=== PATIENT | female | born 1990 | race Caucasian/White ===

== ENCOUNTER 2016-08-11 08:54 | Emergency (ER) | payer OTHER ==
[~2016-08-11] VITALS: Ht 167.6 cm; Wt 56.7 kg
--- NOTE | 2016-08-11 09:47 | NUR ---
Patient discharged to home in stable conditon. Written and verbal after care instructions given. Patient verbalizes understanding of instructions.
== END 2016-08-11 09:48 | disposition home or self-care (01) ==
LOC: ER 08:54
DX: K04.7 Periapical abscess without sinus (principal); J45.909 Unspecified asthma, uncomplicated; F32.9 Major depressive disorder, single episode, unspecified; F41.9 Anxiety disorder, unspecified; F17.210 Nicotine dependence, cigarettes, uncomplicated; Z88.6 Allergy status to analgesic agent; Z88.0 Allergy status to penicillin
CPT/HCPCS: A4663

== ENCOUNTER 2016-08-14 11:04 | Emergency (ER) | payer OTHER ==
[~2016-08-14] VITALS: Ht 165.1 cm; Wt 46.7 kg
[2016-08-14] MEDS ORDERED: CLINDAMYCIN PHOSPHATE IV 900 MG in IV DEXTROSE 5% 100 ML IV ONE (11:30)
[2016-08-14] MEDS ORDERED: CLINDAMYCIN PHOSPHATE 900 MG/6 ML VIAL ONE (11:51)
[2016-08-14] MEDS ORDERED: ONDANSETRON 4 MG/2 ML VIAL IV ONE (12:30)
[2016-08-14] MEDS ORDERED: ONDANSETRON 4 MG/2 ML VIAL ONE (12:35)
--- NOTE | 2016-08-14 13:02 | NUR ---
Patient discharged to home in stable conditon. Written and verbal after care instructions given, RX FOR CLINDAMYCIN given as ordered. Patient verbalizes understanding of instructions. No further questions or concerns noted prior on leaving the ED
[2016-08-14 13:03] VITALS: BP 133/89
== END 2016-08-14 13:04 | disposition home or self-care (01) ==
LOC: ER 11:06
DX: K04.7 Periapical abscess without sinus (principal); M27.2 Inflammatory conditions of jaws; F32.9 Major depressive disorder, single episode, unspecified; J45.909 Unspecified asthma, uncomplicated; F17.210 Nicotine dependence, cigarettes, uncomplicated; F41.9 Anxiety disorder, unspecified; Z88.0 Allergy status to penicillin
CPT/HCPCS: 70486; 96365; 96375; 99284; A4663; J2405; J3490; J7060